=== PATIENT | female | born 1960 | race Caucasian/White ===

== ENCOUNTER → 2018-01-08 | Outpatient (CLI) | payer MEDICARE ==
[2016-01-06 15:30] VITALS: BP 122/62
[~2018-01-08] MED LIST: ALBU2.5V14 NEB; ALBU8.5H8 INH; CETI10TA22 PO; DOXY100C2 PO; FLUT1DIS3 IH; IBUP200T44 PO; INDO50CA PO; MONT10TA6 PO; PRED20TA PO
--- NOTE | 2018-01-08 15:05 | RAD ---
DATE: 01/08/2018 EXAM: MAMMO ANURAG SCREENING BILATERAL HISTORY: Routine screening COMPARISON: Baseline study This study was interpreted with the benefit of Computerized Aided Detection (CAD). The breast parenchyma shows scattered fibroglandular densities. Breast parenchyma level B. FINDINGS: 2-D and 3-D tomograms are obtained in CC and MLO projections. There are 2 small smooth nodules in the lateral aspect of the right breast most likely representing intramammary lymph nodes. No suspicious breast densities or suspicious microcalcifications are evident. Benign-appearing lymph node type densities are present in the axillary regions bilaterally. IMPRESSION: Two small right lateral breast nodules are probably intermammary lymph nodes. In the absence of prior mammograms to establish stability, sonographic evaluation is suggested. BI-RADS CATEGORY: 0 INCOMPLETE: NEEDS ADDITIONAL IMAGING EVALUATION AND/OR PRIOR MAMMOGRAMS FOR COMPARISON. RECOMMENDED FOLLOW-UP: ADD ADDITIONAL IMAGING PQRS compliance statement: Patient information was entered into a reminder system with a target due date for the next mammogram. Mammography is a sensitive method for finding small breast cancers, but it does not detect them all and is not a substitute for careful clinical examination. A negative mammogram does not negate a clinically suspicious finding and should not result in delay in biopsying a clinically suspicious abnormality. "Our facility is accredited by the [employer] Mammography Program."
== END | disposition home or self-care (01) ==
LOC: MAMMO 08:56
PROVIDERS: ATTEND Family Medicine
DX: Z12.31 Encounter for screening mammogram for malignant neoplasm of breast (principal); N63.10 Unspecified lump in the right breast, unspecified quadrant; F17.200 Nicotine dependence, unspecified, uncomplicated
CPT/HCPCS: 77063; 77067

== ENCOUNTER → 2018-01-16 | Outpatient (CLI) | payer MEDICARE ==
[2016-01-06 15:30] VITALS: BP 122/62
--- NOTE | 2018-01-16 11:34 | RAD ---
Right breast ultrasound, 12/27/2017: History: Breast nodules A targeted ultrasound exam of the lateral aspect of the right breast was performed in the areas of mammographic concern. At the 9:00 location approximately 7.5 cm from the nipple there is a small oval-shaped smooth hypoechoic nodule with an echogenic hilum. The appearance is typical of a benign intramammary lymph node. It measures 6 mm in greatest diameter. At the 9:30 location in the right breast approximately 14 cm from the nipple there is an additional small nodule demonstrating a configuration compatible with an intramammary lymph node. It measures 4 mm. These nodules probably correspond to the two right breast nodules seen on the recent mammograms. No additional sonographic abnormality is evident laterally in the right breast. IMPRESSION: Benign right intramammary lymph nodes. Routine yearly mammographic follow-up is suggested. BI-RADS 2-benign findings
== END | disposition home or self-care (01) ==
LOC: US 10:15
PROVIDERS: ATTEND Family Medicine
DX: N63.10 Unspecified lump in the right breast, unspecified quadrant (principal)
CPT/HCPCS: 76641

== ENCOUNTER → 2020-09-01 | Outpatient (CLI) | payer MEDICARE ==
[2016-01-06 15:30] VITALS: BP 122/62
[~2020-09-01] MED LIST changes: +ALBU2.5V8 INH; -ALBU8.5H8 INH; -CETI10TA22 PO; +CETI10TA74 PO; -INDO50CA PO; +INDO50CA15 PO; +IOHEXOL 300 MG/ML 75 ML VIAL. IV ONE; -MONT10TA6 PO; +MONT10TA80 PO
--- NOTE | 2020-09-01 09:36 | RAD ---
EXAM: Chest CT with intravenous contrast. HISTORY: COPD. Asthma. TECHNIQUE: Computed tomographic images of the chest were obtained following the administration of intravenous contrast. Multiplanar reformatting was performed. *One or more of the following individualized dose reduction techniques were utilized for this examination: 1. Automated exposure control. 2. Adjustment of the mA and/or kV according to patient size. 3. Use of iterative reconstruction technique. COMPARISON: None. FINDINGS: The heart is normal in size. The aorta is normal in caliber. There is a common origin of the right innominate and left common carotid arteries, a normal arch variant. There are enlarged mediastinal and hilar lymph nodes. For reference purposes, there is a right paratracheal lymph node measuring 1.4 cm and a prevascular lymph node measuring 2.2 cm. There is a 1.2 cm hypodense nodule within the inferior left thyroid lobe. There is no pneumothorax. There is no pleural effusion. There is posterior dependent and basilar atelectasis. There is scarring or atelectasis within the right middle lobe and lingula. There is bandlike opacity with bronchiectasis along the right minor fissure likely due to scarring. There is no acute finding involving the upper abdomen. There is no acute or suspicious osseous finding. IMPRESSION: 1. Bandlike scarring with associated bronchiectasis along the right minor fissure. 2. Posterior dependent and basilar atelectasis. 3. Enlarged mediastinum and hilar lymph nodes. These are nonspecific and may be reactive in etiology. 4. Left thyroid nodule. This can be better assessed with a thyroid sonogram. Electronically signed by: Belkis Tan MD (09/01/2020 9:34 AM) [id number]
== END ==
LOC: CT 08:56
PROVIDERS: ATTEND Family Medicine
DX: J98.11 Atelectasis (principal); J44.9 Chronic obstructive pulmonary disease, unspecified; E04.1 Nontoxic single thyroid nodule
CPT/HCPCS: 71260; Q9967